=== PATIENT | female | born 1995 | race Caucasian/White ===

== ENCOUNTER 2019-06-05 01:08 | Emergency (ER) | payer BC ==
[~2019-06-05] VITALS: Ht 165.1 cm; Wt 63.5 kg
[2019-06-05 01:08] VITALS: BP 94/50
[2019-06-05 01:20] VITALS: BP 94/50
[2019-06-05 01:31] LABS: HEMATOCRIT 35.7 % (36-48); HEMOGLOBIN 11.4 g/dL (12.0-16.0); MEAN CORPUSCULAR HEMOGLOBIN 28 pg (27-31); MEAN CORPUSCULAR HGB CONC 32 g/dL (33-37); MEAN CORPUSCULAR VOLUME 86.6 fL (80-94); PLATELET COUNT (AUTO) 320 K/uL (140-450); RED BLOOD CELL COUNT(AUTO) 4.12 MIL/uL (4.20-5.40); RED CELL DISTRIBUTION WIDTH 20.6 % (11.6-13.7); WHITE BLOOD COUNT (AUTO) 14.3 K/uL (4.8-10.8)
[2019-06-05] MEDS: NACL 0.9% 2,000 ML IV ONE (01:38)
[2019-06-05] MEDS: LORazepam 2 MG/ML VIAL IVP ONE ×2 (01:38→07:08)
[2019-06-05 01:42] LABS: ANION GAP 13.2 (8-16); CARBON DIOXIDE 28.8 mmol/L (21-32); CREATININE 0.8 mg/dL (0.6-1.3)
[2019-06-05 01:47] LABS: PROTHROMBIN TIME 9.9 secs (10.8-13.4)
[2019-06-05 01:48] LABS: TOTAL BILIRUBIN 0.5 mg/dL (0.0-1.0)
[2019-06-05 01:53] LABS: LYMPHOCYTES % (MANUAL) 4 % (20-46)
[2019-06-05 01:54] LABS: EOSINOPHILS % (MANUAL) 3 % (0-4); MONOCYTES % (MANUAL) 0 % (5-12)
[2019-06-05 02:01] LABS: APPEARANCE,URINE SL CLOUDY (CLEAR); BILIRUBIN,URINE NEGATIVE (NEGATIVE); BLOOD, URINE 1+ (NEGATIVE); COLOR,URINE YELLOW (YELLOW); LEUKOCYTE ESTERASE ,URINE 1+ (NEGATIVE); NITRITE, URINE NEGATIVE (NEGATIVE); UGLUCOSE NEGATIVE (NEGATIVE)
[2019-06-05 02:12] LABS: CALCIUM OXALATE CRYSTALS,UR 0-10 /HPF (None Seen); URINE AMORPHOUS URATE 2+ /HPF (None Seen)
[2019-06-05] MEDS ORDERED: PIPERACILLIN/TAZOBACTAM 3.375 GM VIAL IV ONE (02:28)
[2019-06-05] MEDS: LEVOFLOXACIN 750 MG/D5W PREMIX 150 ML IV ONE (02:59)
[2019-06-05] MEDS: PIPERACILLIN/TAZOBACTAM 3.375 GM in DEXTROSE 5% 50 ML IV ONE (03:00)
[2019-06-05] MEDS: ACETAMINOPHEN 650 MG SUPP RC ONE (03:45)
[2019-06-05 04:30] VITALS: BP 108/55
[2019-06-05 06:54] VITALS: BP 116/50
[2019-06-05] MEDS: ACETAMINOPHEN 650 MG/20.3 ML UDC GT ONE (07:05)
[2019-06-05] MEDS: HYDROcodone/APAP 10/325 MG 1 TAB TAB PO ONE (07:51)
[2019-06-05 10:15] VITALS: BP 144/83
== END 2019-06-05 10:15 | disposition short-term general hospital (02) ==
LOC: MED 01:08
DX: J18.9 Pneumonia, unspecified organism (principal); N39.0 Urinary tract infection, site not specified; G93.1 Anoxic brain damage, not elsewhere classified; Z98.890 Other specified postprocedural states
CPT/HCPCS: 36415; 71045; 80053; 81001; 81025; 83605; 83690; 84484; 85025; 85610; 87040; 87086; 94003; 96365; 96367; 96375; 96376; 99285; J1956; J2060; J2543; J7030; Q0092